=== PATIENT | female | born 1960 | race Caucasian/White ===

== ENCOUNTER → 2022-01-12 | Day surgery (SDC) | payer OTHER ==
[~2022-01-12] MED LIST: ALENDRONATE SOD70 MG PO; ARIMIDEX 1 MG TA1 MG PO; ATENOLOL50 MG PO; CALCIUM 600 +1 EAC3 PO; GABAPENTIN800 MG PO; LISINOPRIL40 MG PO; TRAMADOL HCL50 MG PO; VITAMIN D21250 MCG PO
== END | disposition home or self-care (01) ==
LOC: OR 06:18 → EDSEX 06:18 → OR 07:30
DX: Z12.11 Encounter for screening for malignant neoplasm of colon (principal); I10 Essential (primary) hypertension; E66.9 Obesity, unspecified; Z79.899 Other long term (current) drug therapy; Z68.26 Body mass index [BMI] 26.0-26.9, adult
CPT/HCPCS: J2704; J7120